=== PATIENT | female | born 1980 | race American Indian/Alaskan Native ===

== ENCOUNTER 2017-04-04 08:53 | Emergency (ER) | payer MEDICAID ==
[2017-04-04 09:24] LABS: Basophils % (Auto) 0.3 % (0.0-1.8); Eosinophils % (Auto) 0.1 % (0.0-4.3); Hematocrit 42.1 % (30.3-42.9); Hemoglobin 13.9 gm/dl (10.1-14.3); Mean Corpuscular HGB Conc 33 % (30-34); Mean Corpuscular Hemoglobin 30 pg (28-32); Mean Corpuscular Volume 90 fl (79-97); Platelet Count 250 K/mm3 (140-440); Red Cell Distribution Width 14.2 % (13.2-15.2); White Blood Count 14.6 K/mm3 (4.5-11.0)
[2017-04-04 09:44] LABS: Anion Gap 21 mmol/L; BUN/Creatinine Ratio 16.66; Blood Urea Nitrogen 15 mg/dL (7-17); Calcium 9.7 mg/dL (8.4-10.2); Carbon Dioxide 25 mmol/L (22-30); Chloride 99.4 mmol/L (98-107); Glucose 117 mg/dL (65-100); Potassium 3.8 mmol/L (3.6-5.0); Sodium 142 mmol/L (137-145)
[2017-04-04] MEDS ORDERED: GEODON IM ONE ×2 (09:47→09:53)
[2017-04-04 10:00] LABS: Urine Drugs of Abuse Note Disclamer
[2017-04-04 10:16] LABS: Bacteria,Urine 1+ /HPF (Negative); Bilirubin,Urine NEG (Negative); Blood,Urine MOD (Negative); Ketones,Urine TR mg/dL (Negative); Leukocyte Esterase,Urine LG (Negative); Mucus,Urine 3+ /HPF; Nitrite,Urine NEG (Negative); Urobilinogen,Urine < 2.0 mg/dL (<2.0)
--- NOTE | 2017-04-04 10:18 | Emergency Department Report ---
ED Psych HPI - General Chief Complaint: Altered Mental Status Stated Complaint: AMS Source: patient Mode of arrival: Ambulatory - History of Present Illness Initial Comments: Patient presents to the emergency department with what appears to be a flight of ideas, loose association's and possibly substance abuse. She appears to be very disorganized. She tells me that she has no psychiatric history. However the mental health provider has called the behavioral health clinic and she has been previously in the queue for psychiatric disposition. The patient appears to have a number of somatic delusions. She tells me she has a cerebral aneurysm lupus. She states that she went to her doctor to get her Zanax, Lortab and other controlled substances yesterday but "he was not in". She has other bizarre ideation. However her NIH stroke score is 0. She does know the month and date and is oriented 4. She is somewhat guarded in explaining to us why she came to the emergency room today other than the above guarded history. She states that she is noncompliant or out of all her medications. She does not admit to psychiatric medication however. Complaint: other (psychosis is apparent) -: unknown Associated Psychiatric Symptoms: other History of same: No Quality: constant Improves With: none Worsens With: none Context: not taking psychiatric (I believe) Associated Symptoms: other (multiple somatic delusions) Treatments Prior to Arrival: none - Related Data Home Medications Medication Instructions Recorded Confirmed Last Taken Unobtainable 04/04/17 04/04/17 Unknown Allergies Allergy/AdvReac Type Severity Reaction Status Date / Time No Known Allergies Allergy Verified 04/04/17 08:56 ED Review of Systems ROS: Stated complaint: AMS Other details as noted in HPI Comment: Unobtainable due to pts medical conditions (flight of ideas without rational sense) ED Past Medical Hx - Past Medical History Additional medical history: Lupus, - Social History Smoking Status: Unknown if ever smoked - Medications Home Medications: Home Medications Medication Instructions Recorded Confirmed Last Taken Type Unobtainable 04/04/17 04/04/17 Unknown History ED Physical Exam - General Limitations: Other (psychosis) General appearance: alert, in no apparent distress - Head Head exam: Present: atraumatic, normocephalic - Eye Eye exam: Present: normal appearance, PERRL, EOMI. Absent: scleral icterus - ENT ENT exam: Present: normal exam, mucous membranes moist - Neck Neck exam: Present: normal inspection. Absent: tenderness, meningismus - Respiratory Respiratory exam: Present: normal lung sounds bilaterally. Absent: respiratory distress - Cardiovascular Cardiovascular Exam: Present: regular rate, normal rhythm. Absent: systolic murmur, diastolic murmur, rubs, gallop - GI/Abdominal GI/Abdominal exam: Present: soft, normal bowel sounds. Absent: distended, tenderness, guarding, rebound, rigid - Extremities Exam Extremities exam: Present: normal inspection - Back Exam Back exam: Present: normal inspection - Neurological Exam Neurological exam: Present: alert, oriented X3, CN II-XII intact, normal gait. Absent: motor sensory deficit - Psychiatric Psychiatric exam: Present: agitated, other (appears to be quite bipolar with outbursts of crying) - Skin Skin exam: Present: warm, dry, intact, normal color. Absent: rash ED Course Vital Signs 04/04/17 04/04/17 04/04/17 08:56 09:36 11:01 Temperature 98.6 F Pulse Rate 94 H 77 Respiratory 20 16 16 Rate Blood Pressure 159/120 Blood Pressure 118/78 [Left] O2 Sat by Pulse 100 99 99 Oximetry - Reevaluation(s) Reevaluation #1: The patient's presentation to me is very consistent with a bipolar psychosis. She was found to have a UTI and a mildly elevated white blood cell count. I am not suspecting a medical delirium at this point. Nurse reports to me that she became more psychotic. Therefore she was given Geodon. The nurse again reports to me that she improved remarkably with Geodon. I consult to [place] mental health counselor. She told me that the psychiatrist Dr. Marie would evaluate this patient for continuing 1013 criteria. She is currently a mental health hold. 04/04/17 12:51 ED Medical Decision Making - Lab Data Result diagrams: 04/04/17 09:13 04/04/17 09:13 Laboratory Results - last 24 hr 04/04/17 04/04/17 04/04/17 09:13 09:13 09:13 WBC 14.6 H RBC 4.70 Hgb 13.9 Hct 42.1 MCV 90 MCH 30 MCHC 33 RDW 14.2 Plt Count 250 Lymph % (Auto) 24.8 [place] % (Auto) 7.8 H Eos % (Auto) 0.1 Baso % (Auto) 0.3 Lymph # 3.6 [place] # 1.1 H Eos # 0.0 Baso # 0.0 Seg Neutrophils % 67.0 Seg Neutrophils # 9.8 H Sodium 142 Potassium 3.8 Chloride 99.4 Carbon Dioxide 25 Anion Gap 21 BUN 15 Creatinine 0.9 Estimated GFR > 60 BUN/Creatinine Ratio 16.66 Glucose 117 H Calcium 9.7 HCG, Qual Negative Urine Bilirubin Urine RBC (Auto) U Epithel Cells (Auto) 04/04/17 09:54 WBC RBC Hgb Hct MCV MCH MCHC RDW Plt Count Lymph % (Auto) [place] % (Auto) Eos % (Auto) Baso % (Auto) Lymph # [place] # Eos # Baso # Seg Neutrophils % Seg Neutrophils # Sodium Potassium Chloride Carbon Dioxide Anion Gap BUN Creatinine Estimated GFR BUN/Creatinine Ratio Glucose Calcium HCG, Qual Urine Bilirubin Neg Urine RBC (Auto) 25.0 U Epithel Cells (Auto) 7.0 Critical care attestation.: If time is entered above; I have spent that time in minutes in the direct care of this critically ill patient, excluding procedure time. ED Disposition Clinical Impression: Bipolar disorder with psychotic features UTI (urinary tract infection) Qualifiers: Urinary tract infection type: acute cystitis Hematuria presence: without hematuria Qualified Code(s): N30.00 - Acute cystitis without hematuria Disposition: DC/TX-65 PSY HOSP/PSY UNIT Is pt being admited?: No Does the pt Need Aspirin: No Condition: Stable Time of Disposition: 12:53
[2017-04-04] MEDS ORDERED: ROCEPHIN IM ONE (11:30)
[2017-04-04] MEDS ORDERED: XYLOCAINE 1% MPF 5 mL INFILTRATI ONE (11:30)
[2017-04-04] MEDS ORDERED: TYLENOL PO ONE (21:56)
[2017-04-04] MEDS: GEODON PO SCH (21:59)
[2017-04-04] MEDS: MACROBID PO SCH (21:59)
[2017-04-05] MEDS: MACROBID PO SCH ×2 (10:42→22:07)
[2017-04-05] MEDS: GEODON PO SCH ×2 (10:42→22:07)
[2017-04-05] MEDS ORDERED: TYLENOL PO ONE (21:28)
[2017-04-05] MEDS ORDERED: MOTRIN PO ONE (21:47)
[2017-04-06] MEDS: MACROBID PO SCH ×2 (10:19→22:15)
[2017-04-06] MEDS: GEODON PO SCH (10:19)
[2017-04-06] MEDS: DIFLUCAN PO SCH (11:46)
--- NOTE | 2017-04-06 16:41 | Consultation ---
History of Present Illness - Reason for Consult Consult date: 04/06/17 Reason for consult: Mental Health Evaluation Requesting physician: AVE ABBASI - Chief Complaint Chief complaint: "I don't know what happened" - History of Present Psychiatric Illness Patient presents to the emergency department with what appears to be a flight of ideas, loose association's and possibly substance abuse. Today patient is calm and cooperative during assessment. She stated that she do not remember why she came to [facility]. She stated she remembered sitting on the street curb and the next thing she remember she was at [facility]. She stated that she may have had a seizure (last seizure 4 yrs ago) possibly. She stated that she does not take any medication for seizures. Patient is positive for barbiturates, cocaine, marijuana, and amphetamines. She stated, "I don't know how these drugs got into my system." She stated a hx of depression. Per the patient, she has taken antidepressants in the past with no therapeutic effect. She stated that she currently see a therapist for maladaptive coping. She stated that she prefer therapy rather than taking medications. She denies SI/HI's, AVH's, and depression. She denies excessive alcohol consumption (etoh). Medications and Allergies Allergies Allergy/AdvReac Type Severity Reaction Status Date / Time No Known Allergies Allergy Verified 04/04/17 20:20 Home Medications Medication Instructions Recorded Confirmed Last Taken Type ALPRAZolam [Xanax TAB] 2 mg PO TID PRN 04/04/17 04/04/17 Unknown History Nitrofurantoin [place]/M-Cryst 100 mg PO Q12HR #10 capsule 04/04/17 Unknown Rx [Macrobid CAP] Active Meds: Active Medications Fluconazole (Diflucan) 100 mg PO QDAY [facility] Last Admin: 04/06/17 11:46 Dose: 100 mg Nitrofurantoin Macrocrystals (Macrobid) 100 mg PO BID [facility] Last Admin: 04/06/17 10:19 Dose: 100 mg Ziprasidone (Geodon) 40 mg PO BID [facility] Last Admin: 04/06/17 10:19 Dose: 40 mg Past psychiatric history - Past Medical History Past Medical History: other (Lupus) Past Surgical History: No surgical history - past Psychiatric treatment and history Psych: Depression psychiatric treatment history: Seen outpatient at [facility] per the patient. Mother - Depression. - Social History Social history: lives with family ([employer], [employer] Graduate) Mental Status Exam - Vital signs Last Vital Signs Temp 98.8 F 04/06/17 09:36 Pulse 98 H 04/06/17 09:36 Resp 18 04/06/17 09:36 BP 120/78 04/06/17 09:36 Pulse Ox 100 04/06/17 09:36 - Exam Narrative exam: ROS: (-) depression, (-) manic/psychosis MSE: Appearance: calm, cooperative Behavior: regular eye contact Speech: regular rate and tone Mood: "I'm okay" Affect: congruent to mood Thought Process: circumstantial Thought Content: denies SI/HI's and AVH's Motor Activity: ambulatory Cognition: A/Ox 3 Insight: limited Judgment: limited Results Result Diagrams: 04/04/17 09:13 04/04/17 09:13 All other labs normal. 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 Today patient is calm and cooperative during assessment. Patient treated for UTI. DDx: R/O Bipolar DO Recommendation/Plan: Evaluate 1013 in 24 hours to determine proper dispo. Discussed medication therapy with patient reference risks and benefits. The patient does not want to take medications, she prefer therapy. She currently see a therapist for maladaptive coping. Also, we discussed patient's rights reference medication administration.
[2017-04-07 09:29] VITALS: BP 154/101
[2017-04-07] MEDS: MACROBID PO SCH (09:59)
[2017-04-07] MEDS: DIFLUCAN PO SCH (09:59)
--- NOTE | 2017-04-07 11:37 | Progress Note ---
Subjective - Reason for Consult Consult date: 04/07/17 Reason for consult: Psychiatry Follow-up - Chief Complaint Chief complaint: "Thank you" Patient presents to the emergency department with what appears to be a flight of ideas, loose association's and possibly substance abuse. Today patient is calm and cooperative during the assessment. She stated that she is ready to get on her feet and be a better provider for her children. She stated that she will follow up with her psychiatrist and therapist this week. I spoke with her mother Ms Nhi Fulton [phone] and she stated that her daughter's behavior on admission to [facility] was unlike her. She stated that her daughter always keep up with her scheduled appts at [facility]. The patient denies SI/HI' s, AVH's, and depression symptoms. 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 Today patient is calm and cooperative during assessment. Substance has resolved. Patient will reside with her mother Ms Nhi Fulton once discharged. Patient is no threat to self. Recommendation/Plan: Rescind 1013. Discussed medication therapy with patient reference risks and benefits. The patient does not want to take medications, she prefer therapy. Patient can follow up with [facility].
== END 2017-04-07 13:13 ==
LOC: ED 08:53 → EEVIPCON 08:53 → ED 04-07 13:13
DX: F31.9 Bipolar disorder, unspecified (principal); N30.00 Acute cystitis without hematuria
CPT/HCPCS: 36415; 80048; 80307; 81001; 84703; 85025; 87086; 96372; 99284; G0480; J0696; J3486; 80320

== ENCOUNTER 2017-09-20 21:52 | Emergency (ER) | payer MEDICAID ==
[2017-09-20 22:49] VITALS: BP 170/115
[2017-09-20 23:38] LABS: Hematocrit 41.4 % (30.3-42.9); Hemoglobin 13.3 gm/dl (10.1-14.3); Mean Corpuscular HGB Conc 32 % (30-34); Mean Corpuscular Hemoglobin 30 pg (28-32); Mean Corpuscular Volume 93 fl (79-97); Platelet Count 311 K/mm3 (140-440); Red Blood Count 4.44 M/mm3 (3.65-5.03); Red Cell Distribution Width 14.6 % (13.2-15.2)
[2017-09-20 23:40] LABS: BUN/Creatinine Ratio 15; Blood Urea Nitrogen 9 mg/dL (7-17); Calcium 9.4 mg/dL (8.4-10.2); Hemolysis Index 14
[2017-09-21 00:25] LABS: Band Neutrophils # (Manual) 0.9 K/mm3; Basophils % (Manual) 0 % (0.0-1.8); RBC Morphology Normal; Total Cells Counted 100
== END 2017-09-21 03:15 | disposition left against medical advice (07) ==
LOC: ED 21:52
DX: Z53.21 Procedure and treatment not carried out due to patient leaving prior to being seen by health care provider (principal)
CPT/HCPCS: 36415; 80048; 85007; 85025

== ENCOUNTER 2018-05-24 05:09 | Emergency (ER) | payer MEDICAID ==
[2018-05-24 06:52] VITALS: BP 172/112
[2018-05-24 07:36] LABS: HCG Qualitative,Urine Negative (Negative)
[2018-05-24 07:41] LABS: Bacteria,Urine 1+ /HPF (Negative); Bilirubin,Urine NEG (Negative); Blood,Urine MOD (Negative); Color,Urine Yellow (Yellow); Mucus,Urine 3+ /HPF; Urobilinogen,Urine < 2.0 mg/dL (<2.0)
== END 2018-05-24 07:00 | disposition left against medical advice (07) ==
LOC: ED 05:09
DX: R50.9 Fever, unspecified (principal); Z53.21 Procedure and treatment not carried out due to patient leaving prior to being seen by health care provider
CPT/HCPCS: 81001; 81025; 93005; 93010